=== PATIENT | female | born 2000 | race Caucasian/White ===

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

== ENCOUNTER 2019-08-11 17:36 | Emergency (ER) | payer BC, OTHER ==
[2019-08-11 17:57] VITALS: BP 125/77; PULSE 105
[2019-08-11] MEDS ORDERED: Ibuprofen 800 MG Tab PO ONE (18:08)
--- NOTE | 2019-08-11 18:17 | EDM.PDOC ---
ED HPI GENERAL MEDICAL PROBLEM - General Chief Complaint: Back Pain or Injury Stated Complaint: FALL/BACK PAIN Time Seen by Provider: 08/11/19 17:58 Source of Information: Reports: Patient History Limitations: Reports: No Limitations - History of Present Illness INITIAL COMMENTS - FREE TEXT/NARRATIVE: Patient is a 19-year-old female who presents to the emergency department with acute low back pain which radiates down her bilateral legs. She does have some numbness and tingling down her legs. Denies any bowel or bladder dysfunction. She states that she was walking down some stairs and slipped. Her right leg went under her and her tailbone hit the edge of the stair. She has not taken anything for pain thus far and states that she would only like ibuprofen as pain meds "messed her up ". She denies any bowel or bladder dysfunction. Lower Back Pain Score (Numeric/FACES): 7 - Related Data Allergies Allergy/AdvReac Type Severity Reaction Status Date / Time antibiotics Allergy Rash Uncoded 08/11/19 17:58 Home Meds: Home Meds Hydrocodone/Acetaminophen [Vicodin 5-300 mg Tablet] 1 each PO QID PRN #12 tablet 12/12/16 [Rx] Ibuprofen 600 mg PO QID PRN #40 tablet 12/12/16 [Rx] Past Medical History - Past Health History Medical/Surgical History: Denies Medical/Surgical History HEENT History: Reports: Impaired Vision Musculoskeletal History: Reports: Other (See Below) Other Musculoskeletal History: hx of back spasm in mid to lower back. Was prescribed flexiril by MD at [facility] Social & Family History - Family History Family Medical History: Noncontributory Endocrine/Metabolic: Reports: Hypothyroidism - Tobacco Use Smoking Status *Q: Never Smoker - Caffeine Use Caffeine Use: Reports: Coffee Caffeine Use Comment: 3 or 4 a day when she works, 1-2 when she doesnt work ED ROS GENERAL - Review of Systems Review Of Systems: Comprehensive ROS is negative, except as noted in HPI. ED EXAM,LOWER BACK PAIN/INJURY - Physical Exam Exam: See Below Exam Limited By: No Limitations General Appearance: Alert, WD/WN, Mild Distress Respiratory/Chest: No Respiratory Distress, Lungs Clear, Normal Breath Sounds, No Accessory Muscle Use, Chest Non-Tender Cardiovascular: Normal Peripheral Pulses, Regular Rate, Rhythm, No Edema, No Gallop, No JVD, No Murmur, No Rub Back Exam: Normal Inspection, Paraspinal Tenderness (Bilateral at the level of L3 and down. Marked tenderness over the SI joint bilaterally), Vertebral Tenderness (L3 through coccyx) Extremities: Normal Inspection, Normal Range of Motion, Non-Tender, No Pedal Edema, Normal Capillary Refill Neurological: Alert, Normal Mood/Affect, Normal Dorsiflexion, CN II-XII Intact, Normal Plantar Flexion, Normal Gait, Normal Reflexes, No Motor/Sensory Deficits , Oriented x 3 Psychiatric: Normal Affect, Normal Mood Skin Exam: Warm, Dry, Intact, Normal Color, No Rash Course - Vital Signs Last Recorded V/S: Last Vital Signs Temp 98.7 F 08/11/19 17:55 Pulse 105 H 08/11/19 17:55 Resp 20 08/11/19 17:55 BP 125/77 08/11/19 17:55 Pulse Ox 100 08/11/19 17:55 - Orders/Labs/Meds Meds: Medications Discontinued Medications Generic Name Dose Route Start Last Admin Trade Name Elvis PRN Reason Stop Dose Admin Ibuprofen 800 mg 08/11/19 18:08 08/11/19 18:21 Motrin PO 08/11/19 18:09 800 mg ONETIME ONE Administration - Re-Assessments/Exams Free Text/Narrative Re-Assessment/Exam: 08/11/19 19:48 X-ray of the lumbar spine shows disc space narrowing and anterior osteophytes and T11-T12, however this does not correspond with the patient's area of pain. X-ray of the sacrum and coccyx does show a nondisplaced fracture of the coccyx. Pelvis ultrasound x-ray was found to be normal. Discussed these findings with the patient. Recommendation would be to use Tylenol as needed for pain. I am going to give her a prescription for tramadol as she states she is tolerated this well in the past. This should be used as needed for pain not relieved by Tylenol. Also recommended that she start taking a daily stool softener. Will provide her a note off from work for 1 week. I would like her to follow-up in the clinic at the end of next week. Discharge instructions as documented. Departure - Departure Time of Disposition: 19:48 Disposition: Home, Self-Care 01 Condition: Good Clinical Impression: Fractured coccyx Qualifiers: Encounter type: initial encounter Fracture type: closed Qualified Code(s): S32.2XXA - Fracture of coccyx, initial encounter for closed fracture - Discharge Information Instructions: Tailbone Injury Referrals: Juana Mercedes PA [Primary Care Provider] - Forms: ED Department Discharge, ED Return to Work/School Form Additional Instructions: You were seen in the emergency department for acute low back pain after falling on the stairs. X-rays were completed of your lumbar spine, your sacrum and coccyx, and your pelvis. X-rays did show that you have a nondisplaced fracture of your coccyx which is your tailbone. Management of pain is the castañeda to treatment for fracture of the coccyx. As we discussed, I would recommend that you use [id number] Tylenol to treat the pain. Ensure that you are not taking more than 4000 mg in a day. For pain not relieved by the Tylenol, you have been provided with a prescription for tramadol. Take this medication as prescribed. Do not work or operate heavy machinery for 12 hours after taking this medication. I would also recommend that you start taking a daily stool softener as having a bowel movement with a fracture of the coccyx can be quite painful, especially if it is hard. Recommend that you ice over the area intermittently over the next few days. You may also use heat if you find that that helps better. I would like you to follow-up in the clinic with your primary care provider at the end of this week. If you are still having significant pain, you may discuss with her extending your work note and ongoing management. Sepsis Event Note - Evaluation Sepsis Screening Result: No Definite Risk - Focused Exam Vital Signs: Vital Signs Temp Pulse Resp BP Pulse Ox 08/11/19 17:55 98.7 F 105 H 20 125/77 100 Date Exam was Performed: 08/11/19 Time Exam was Performed: 20:01
--- NOTE | 2019-08-11 19:09 | CR ---
Lumbar spine: AP and lateral views of the lumbar spine were obtained. Comparison: No prior lumbar spine imaging is available. Vertebral body heights and disc spaces are maintained within the lumbar spine. There does appear to be disc space narrowing and anterior osteophytes at T11-12. Pedicles are intact. Transverse and spinous processes are intact. No subluxation or fracture is seen. Impression: 1. Disc space narrowing and anterior osteophytes appear to be present at T11-12. 2. 2 view lumbar spine study is otherwise unremarkable. Diagnostic code #2 This report was dictated in MDT
--- NOTE | 2019-08-11 19:10 | CR ---
Pelvis: AP view of the pelvis was obtained. Comparison: No prior pelvis study is available. Joint spaces within both hips are maintained. Sacroiliac joints appear within normal limits. No fracture or other bony abnormality is appreciated. Impression: 1. No abnormality is identified on AP pelvis study. Diagnostic code #1 This report was dictated in MDT
--- NOTE | 2019-08-11 19:11 | CR ---
Sacrum and coccyx: 3 views of the sacrum and coccyx were obtained. Comparison: No prior sacrum or coccyx study. Nondisplaced fracture is noted within the proximal coccygeal segment. No additional fracture or other bony abnormality is appreciated. Impression: 1. Nondisplaced fracture within the proximal coccygeal segment. Diagnostic code #3 This report was dictated in MDT
== END 2019-08-11 20:26 | disposition home or self-care (01) ==
LOC: JD.ED 17:36
DX: S32.2XXA Fracture of coccyx, initial encounter for closed fracture (principal); Z88.1 Allergy status to other antibiotic agents; W01.0XXA Fall on same level from slipping, tripping and stumbling without subsequent striking against object, initial encounter
CPT/HCPCS: 72100; 72170; 72220; 99283; A9270; 99282

== ENCOUNTER 2022-04-24 13:14 | Emergency (ER) | payer OTHER ==
[2022-04-24] MEDS ORDERED: Sodium Chloride 0.9% 10 ML Syringe FLUSH PRN (13:44)
[2022-04-24 16:07] VITALS: BP 129/94; PULSE 98
== END 2022-04-24 16:00 | disposition home or self-care (01) ==
LOC: JD.ED 13:14
DX: R00.0 Tachycardia, unspecified (principal); R00.2 Palpitations; Z88.1 Allergy status to other antibiotic agents; Z87.891 Personal history of nicotine dependence
CPT/HCPCS: 36415; 80053; 83735; 84443; 85025; 93005; 99285